=== PATIENT | female | born 1965 | race Caucasian/White ===

== ENCOUNTER 2024-04-22 06:22 | Emergency (ER) | payer BC ==
[~2024-04-22] VITALS: Ht 165.1 cm; Wt 65.0 kg
[2024-04-22 06:31] VITALS: BP 107/66
[2024-04-22] MEDS ORDERED: IBANDRONATE SO150 MG PO (06:40)
[2024-04-22] MEDS ORDERED: ALUM & MAG HYDROX-SIMETHICONE 30 ML PO ONE (06:45)
[2024-04-22] MEDS ORDERED: PANTOPRAZOLE SODIUM Sesquihydr 40 MG/TAB PO ONE (06:45)
[2024-04-22] MEDS ORDERED: LIDOCAINE VISCOUS 2% 15 ML UDC PO ONE (06:45)
[2024-04-22] MEDS ORDERED: CARAFATE1 GM PO (06:48)
[2024-04-22] MEDS ORDERED: PROTONIX40 M2 PO (06:48)
[2024-04-22 07:00] VITALS: BP 107/63
== END 2024-04-22 07:14 | disposition home or self-care (01) | DRG 392 ==
LOC: ED 06:22
DX: K20.80 Other esophagitis without bleeding (principal); T45.8X5A Adverse effect of other primarily systemic and hematological agents, initial encounter